=== PATIENT | male | born 1960 | race Caucasian/White ===

== ENCOUNTER 2017-09-05 13:44 | Emergency (ER) | payer OTHER ==
[~2017-09-05 13:44] MED LIST: DIC50 PO; LEVO75TA73 PO; OMEP-218 PO; RANI-324 PO
--- NOTE | 2017-09-05 14:03 | EKG ---
FACILITY: [facility] - [place] PATIENT NAME: CAROLYNN TAMAYO : [id number] MR: [id number] V: [id number] EXAM DATE: ORDERING PHYSICIAN: ROMULO ZARATE TECHNOLOGIST: JUNIOR Test Reason : CP Blood Pressure : / mmHG Vent. Rate : 066 BPM Atrial Rate : 066 BPM P-R Int : 166 ms QRS Dur : 112 ms QT Int : 388 ms P-R-T Axes : 020 -38 023 degrees QTc Int : 406 ms Normal sinus rhythm Left axis deviation Moderate voltage criteria for LVH, may be normal variant Abnormal ECG No previous ECGs available Confirmed by GUSTAVO FRANCO ([id number]) on 09/05/2017 2:24:11 PM Referred By: ELLIOT Confirmed By:GUSTAVO FRANCO
[2017-09-05] MEDS ORDERED: NS(*) 0.9% 1000 ML BAG 1,000 ML IV ONE (14:09)
[2017-09-05] MEDS ORDERED: LIDOCAINE 2% VISC SLN 15ML UDC PO ONE (14:10)
[2017-09-05] MEDS ORDERED: ATRO/SCOPOL/HYOSCY/PB 5 ML ELX PO ONE (14:10)
[2017-09-05] MEDS ORDERED: MAG HYD/AL HYD/SIMETH 30ML UDC PO ONE (14:10)
[2017-09-05] MEDS ORDERED: ASPIRIN 81 MG CHEW PO ONE (14:10)
[2017-09-05 14:22] LABS: PLATELET COUNT, AUTOMATED 254 K/uL (150-450)
--- NOTE | 2017-09-05 14:50 | RADIOLOGY IMAGING REPORT ---
FACILITY: PATIENT NAME: Jaret Richards : 1960 MR: [id number] V: [id number] EXAM DATE: ORDERING PHYSICIAN: YOBANI SPANN TECHNOLOGIST: Location: [facility] [place] Patient: Jaret Richards : 1960 Visit/Account:[id number] Date of Sevice: 09/05/2017 EXAMINATION: Chest 2 Views HISTORY: Chest pain. COMPARISON: None. FINDINGS: The lungs are clear. No focal consolidation or pleural fluid. No pneumothorax. Normal cardiomedias tinal silhouette, with normal heart size and pulmonary vascularity. Visualized osseous structures ar e unremarkable. IMPRESSION: Negative chest. Report Dictated By: Bharath Pang MD at 09/05/2017 2:40 PM Report E-Signed By: Bharath Pang MD at 09/05/2017 2:45 PM WSN:[id number]
[2017-09-05] MEDS ORDERED: OMEP40CA48 PO (15:10)
--- NOTE | 2017-09-05 15:17 | ER Report ---
History and Physical Time Seen By MD: 14:00 Hx. of Stated Complaint: pt reports esophageal pain, on and off for 1.5 years; can't see a doctor until the end of september; pt reports l arm and neck pain "when it flares up" HPI/ROS CHIEF COMPLAINT: Esophageal pain HISTORY OF PRESENT ILLNESS: 56-year-old male patient presents to emergency room with complaint of esophageal pain. Patient states that he has been having this for the past 18 months. He states that he started having pain after he had an endoscopy which showed inflammation of the esophagus. He states he's been taking 20 mg of omeprazole daily to help. He states that there are days that seems to help, however there other days where the pain is significant. He denies any nausea, vomiting or diarrhea. He states the pain is coming worse and is concerned there may be some other cause. He denies having any cardiac history. Patient states the pain is worse typically in the morning. REVIEW OF SYSTEMS: Respiratory: No cough, no dyspnea. Cardiovascular: As noted above Gastrointestinal: No vomiting, no abdominal pain. Musculoskeletal: No back pain. Allergies: Coded Allergies: No Known Drug Allergies (Verified , 09/05/17) Home Meds Active Scripts Omeprazole (OMEPRAZOLE) 40 Mg Capsule., 40 MG PO QDAY, #30 CAP Prov:YOBANI SPANN [employer]OUT [employer] 09/05/17 Reported Medications Omeprazole Magnesium (PRILOSEC OTC) 20 Mg Tablet.dr, 1 TAB PO PRN, TAB 03/26/16 Levothyroxine Sodium (LEVOTHYROXINE SODIUM) 75 Mcg Tablet, 1 TAB PO QDAY, TAB 02/27/16 Past Medical/Surgical History A shunt has a past medical history of reflux, hypothyroidism, alcohol use. Patient has surgical history of endoscopy, colonoscopy, left knee surgery, bilateral ankle surgery. Reviewed Nurses Notes: Yes Hx Smoking: No Smoking Status: Never Smoker Hx Substance Use Disorder: No Hx Alcohol Use: Yes Constitutional Vital Sign - Last 24 Hours 09/05/17 09/05/17 09/05/17 09/05/17 13:49 13:49 13:59 14:14 Temp 97.9 Pulse 81 91 76 Resp 16 B/P (MAP) 138/98 138/98 (111) Pulse Ox 92 92 93 O2 Delivery Room Air 09/05/17 09/05/17 09/05/17 09/05/17 14:29 14:41 14:44 14:59 Pulse 77 73 66 B/P (MAP) 125/98 (107) Pulse Ox 93 92 95 09/05/17 09/05/17 09/05/17 15:00 15:14 15:20 Pulse 71 B/P (MAP) 135/93 (107) 119/92 (101) Pulse Ox 97 Physical Exam General Appearance: The patient is alert, has no immediate need for airway protection and no current signs of toxicity. Respiratory: Chest is non tender, lungs are clear to auscultation. Cardiac: regular rate and rhythm Gastrointestinal: Abdomen is soft and non tender, no masses, bowel sounds normal. Musculoskeletal: Neck: Neck is supple and non tender. Extremities have full range of motion and are non tender. Skin: No rashes or lesions. DIFFERENTIAL DIAGNOSIS: After history and physical exam differential diagnosis was considered for chest pain including but not limited to myocardial ischemia, pericarditis pulmonary embolus, chest wall pain, pleural inflammation and pulmonary infectious causes. Included in the differential is esophagitis. Medical Decision Making Data Points Result Diagram: 09/05/17 1410 09/05/17 1410 Laboratory Hematology Test 09/05/17 14:10 Red Blood Count 5.57 M/uL (4.00-5.60) Mean Corpuscular Volume 86.6 fL (80.0-96.0) Mean Corpuscular Hemoglobin 30.2 pg (26.0-33.0) Mean Corpuscular Hemoglobin Concent 34.9 g/dL (32.0-36.0) Red Cell Distribution Width 12.6 % (11.5-14.5) Mean Platelet Volume 7.8 fL (7.2-11.1) Neutrophils (%) (Auto) 59.4 % (39.4-72.5) Lymphocytes (%) (Auto) 29.6 % (17.6-49.6) Monocytes (%) (Auto) 8.8 % (4.1-12.4) Eosinophils (%) (Auto) 1.2 % (0.4-6.7) Basophils (%) (Auto) 1.0 % (0.3-1.4) Nucleated RBC Relative Count (auto) 0.0 /100WBC Neutrophils # (Auto) 5.3 K/uL (2.0-7.4) Lymphocytes # (Auto) 2.6 K/uL (1.3-3.6) Monocytes # (Auto) 0.8 K/uL (0.3-1.0) Eosinophils # (Auto) 0.1 K/uL (0.0-0.5) Basophils # (Auto) 0.1 K/uL (0.0-0.1) Nucleated RBC Absolute Count (auto) 0.00 K/uL Peripheral Blood Smear No Y/N Sodium Level 140 mmol/L (137-145) Potassium Level 4.0 mmol/L (3.5-5.0) Chloride Level 103 mmol/L (98-107) Carbon Dioxide Level 22 mmol/L (22-30) Blood Urea Nitrogen 14 mg/dl (9-21) Creatinine 0.90 mg/dl (0.66-1.25) Glomerular Filtration Rate Calc > 60.0 Random Glucose 98 mg/dl (75-110) Calcium Level 9.7 mg/dl (8.4-10.2) Total Bilirubin 1.2 mg/dl (0.2-1.3) Aspartate Amino Transf (AST/SGOT) 38 U/L (0-35) Alanine Aminotransferase (ALT/SGPT) 35 U/L (0-56) Alkaline Phosphatase 80 U/L (0-126) Troponin I < 0.012 ng/ml Total Protein 8.1 gm/dl (6.3-8.2) Albumin 4.6 g/dl (3.5-5.0) Amylase Level 64 U/L (0-110) Lipase 60 U/L (23-300) Chemistry Test 09/05/17 14:10 White Blood Count 8.8 k/uL (4.5-11.0) Red Blood Count 5.57 M/uL (4.00-5.60) Hemoglobin 16.8 g/dL (14.0-18.0) Hematocrit 48.3 % (42.0-52.0) Mean Corpuscular Volume 86.6 fL (80.0-96.0) Mean Corpuscular Hemoglobin 30.2 pg (26.0-33.0) Mean Corpuscular Hemoglobin Concent 34.9 g/dL (32.0-36.0) Red Cell Distribution Width 12.6 % (11.5-14.5) Platelet Count 254 K/uL (150-450) Mean Platelet Volume 7.8 fL (7.2-11.1) Neutrophils (%) (Auto) 59.4 % (39.4-72.5) Lymphocytes (%) (Auto) 29.6 % (17.6-49.6) Monocytes (%) (Auto) 8.8 % (4.1-12.4) Eosinophils (%) (Auto) 1.2 % (0.4-6.7) Basophils (%) (Auto) 1.0 % (0.3-1.4) Nucleated RBC Relative Count (auto) 0.0 /100WBC Neutrophils # (Auto) 5.3 K/uL (2.0-7.4) Lymphocytes # (Auto) 2.6 K/uL (1.3-3.6) Monocytes # (Auto) 0.8 K/uL (0.3-1.0) Eosinophils # (Auto) 0.1 K/uL (0.0-0.5) Basophils # (Auto) 0.1 K/uL (0.0-0.1) Nucleated RBC Absolute Count (auto) 0.00 K/uL Peripheral Blood Smear No Y/N Glomerular Filtration Rate Calc > 60.0 Calcium Level 9.7 mg/dl (8.4-10.2) Total Bilirubin 1.2 mg/dl (0.2-1.3) Aspartate Amino Transf (AST/SGOT) 38 U/L (0-35) Alanine Aminotransferase (ALT/SGPT) 35 U/L (0-56) Alkaline Phosphatase 80 U/L (0-126) Troponin I < 0.012 ng/ml Total Protein 8.1 gm/dl (6.3-8.2) Albumin 4.6 g/dl (3.5-5.0) Amylase Level 64 U/L (0-110) Lipase 60 U/L (23-300) EKG/Imaging EKG Interpretation 12 lead EKG: Rhythm: normal sinus rhythm with ventricular rate of 66 bpm Willis: normal QRS: normal ST segments: normal Imaging EXAMINATION: Chest 2 Views HISTORY: Chest pain. COMPARISON: None. FINDINGS: The lungs are clear. No focal consolidation or pleural fluid. No pneumothorax. Normal cardiomediastinal silhouette, with normal heart size and pulmonary vascularity. Visualized osseous structures are unremarkable. IMPRESSION: Negative chest. Report Dictated By: Bharath Pang MD at 09/05/2017 2:40 PM Report E-Signed By: Bharath Pang MD at 09/05/2017 2:45 PM ED Course/Re-evaluation ED Course Patient was admitted and examined, history and physical were obtained. Differential diagnoses were considered. On examination patient has no obvious signs of pain. A CBC, CMP, troponin, EKG, chest x-ray were done. Lab results were unremarkable. Elevated one troponin as the patient has been having pain for the past 4 days. I believe that has ruled out any acute TX. I believe that the pain is likely caused by esophagitis. With the patient taking only 20 mg of omeprazole I would like to go ahead and increase him to 40 mg daily. We will also give him a GI cocktail that he can take every 4 hours as needed for pain. Patient is to follow-up with lease picker as he scheduled on the . Patient was given GI cocktail here in the emergency room which seemed to help considerably with his pain. We will use that on an outpatient while the omeprazole taking effect. I discussed this with the patient is and they verbalized understanding and agreement with plan. Decision to Disposition Date: Sep 05, 2017 Decision to Disposition Time: 15:17 Depart Departure Latest Vital Signs Vital Signs Date Time Temp Pulse Resp B/P (MAP) Pulse Ox O2 Delivery O2 Flow Rate FiO2 09/05/17 15:20 119/92 (101) 09/05/17 15:14 71 97 09/05/17 13:49 97.9 16 Room Air Impression: Primary Impression: GERD (gastroesophageal reflux disease) Condition: Improved Disposition: HOME OR SELF-CARE Referrals: EJ HANKS (PCP) New Scripts Omeprazole (OMEPRAZOLE) 40 Mg Capsule. 40 MG PO QDAY, #30 CAP Prov: YOBANI SPANN 09/05/17 Patient Instructions: Gastroesophageal Reflux Disease (ED) Additional Instructions: Avoid alcohol and carbonated drinks 4 hours prior to bed time. Continue with normal diet. Follow up with Gastroenterology on 09/19 as previously scheduled. Follow up with your primary care provider if you are continuing to have pain. It is my hope that you will have improved comfort in the next 4-5 days and then will not need the GI cocktail. Problem Qualifiers Primary Impression: GERD (gastroesophageal reflux disease) Esophagitis presence: with esophagitis Qualified Codes: K21.0 - Gastro- esophageal reflux disease with esophagitis YOBANI SPANN Sep 05, 2017 15:17
[2017-09-05 15:20] VITALS: BP 119/92
== END 2017-09-05 15:22 | disposition home or self-care (01) ==
LOC: ER 13:54
DX: K21.0 Gastro-esophageal reflux disease with esophagitis (principal)
CPT/HCPCS: 71046; 82040; 82150; 82247; 82310; 82374; 82435; 82565; 82947; 83690; 84075; 84132; 84155; 84295; 84450; 84460; 84484; 84520; 85025; 93005; 99284

== ENCOUNTER → 2017-09-30 | Outpatient (CLI) | payer OTHER ==
[~2017-09-30] MED LIST changes: +DEXL60CA6 PO; +OMEP40CA48 PO; -RANI-324 PO; +RANI-366 PO
--- NOTE | 2017-09-30 11:13 | RADIOLOGY IMAGING REPORT ---
FACILITY: [facility] - [place] PATIENT NAME: Jaret Richards : 1960 MR: [id number] V: [id number] EXAM DATE: ORDERING PHYSICIAN: CRISTINA JACKSON TECHNOLOGIST: Location: [facility] Patient: Jaret Richards : 1960 Visit/Account:[id number] Date of Sevice: 09/30/2017 GALLBLADDER W KINEVAC HISTORY: Right upper quadrant pain after eating COMPARISON: None. FINDINGS: There is no demonstration of gallbladder stones, gallbladder sludge, gallbladder wall thickening or p ericholecystic fluid. The maximum gallbladder volume was 26.7 mL. Following intravenous administrat ion of 3.09 mL of CCK the maximum gallbladder contraction yielded a volume of 16.4. This demonstrate s a gallbladder ejection fraction of 34%. The patient experienced nausea following the injection of CCK six on a scale of 10. The patient also experienced pain four on a scale of 10. IMPRESSION: Gallbladder ejection fraction 34% Report Dictated By: Ana Nieves MD at 09/30/2017 11:05 AM Report E-Signed By: Ana Nieves MD at 09/30/2017 11:09 AM WSN:[email or web address]
== END ==
LOC: US 02:20
PROVIDERS: ATTEND Nurse Practitioner Family
DX: R93.2 Abnormal findings on diagnostic imaging of liver and biliary tract (principal)
CPT/HCPCS: 76705

== ENCOUNTER 2017-10-03 00:34 | Day surgery (SDC) | payer OTHER ==
[~2017-10-03] VITALS: Ht 180.3 cm; Wt 75.7 kg
[2017-10-03] MEDS ORDERED: GLYCOPYRROLATE 0.2MG/ML 1 ML INJ IVP ONE (08:20)
[2017-10-03 12:54] VITALS: BP 130/84
[2017-10-03] MEDS ORDERED: LIDOCAINE/SOD BICARB 8.4% SYR ID ONE (13:10)
[2017-10-03] MEDS ORDERED: NORMOSOL R SOLN(*) 1000 ML BAG 1,000 ML IV PRN (13:10)
[2017-10-03 14:47] VITALS: BP 108/81
[2017-10-03 15:00] VITALS: BP 122/87
[2017-10-03 15:15] VITALS: BP 120/90
[2017-10-03 15:22] VITALS: BP 128/92
[2017-10-03 15:23] VITALS: BP 119/88
== END 2017-10-03 15:50 | disposition home or self-care (01) ==
LOC: OR 00:34
PROVIDERS: ATTEND Internal Medicine Gastroenterology
DX: K44.9 Diaphragmatic hernia without obstruction or gangrene (principal); K20.9 Esophagitis, unspecified; K31.7 Polyp of stomach and duodenum; K29.70 Gastritis, unspecified, without bleeding
CPT/HCPCS: 43239; J3490; 88305; 88313; 88344

== ENCOUNTER → 2018-09-19 | Outpatient (CLI) | payer OTHER ==
--- NOTE | 2018-09-19 12:19 | RADIOLOGY IMAGING REPORT ---
FACILITY: [facility] [place] PATIENT NAME: Jaret Richards : 1960 MR: [id number] V: [id number] EXAM DATE: ORDERING PHYSICIAN: EJ HANKS TECHNOLOGIST: Location: [facility] Patient: Jaret Richards : 1960 Visit/Account:[id number] Date of Sevice: 09/19/2018 EXAMINATION: CT Head without intravenous contrast CT Head with intravenous contrast HISTORY: Persistent headache after head injury 5 weeks ago. TECHNIQUE: Contiguous axial images were obtained from the skull base to the vertex before and after IV contrast. Sagittal and coronal reformatted images are also submitted. One of the following dose optimization techniques was utilized in the performance of this exam: Autom ated exposure control; adjustment of the mA and/or kV according to the patient's size; or use of an i terative reconstruction technique. Specific details can be referenced in the facility's radiology C T exam operational policy. CONTRAST: 75 mL of IV [id number] COMPARISON: None available. FINDINGS: Brain volume: Normal. Ventricles: Negative. Acute ischemic changes: None. Hemorrhage: None. Masses / edema: None. Enhancement: Negative. Peng-white: Negative. White matter: Negative. Vessels: Negative. Extra-axial: Negative. Calvarium / skull base: Negative. Visualized sinuses / orbits: Leftward nasal septal deviation posteriorly. IMPRESSION: No acute intracranial abnormality. Report Dictated By: Juwan Tenorio MD at 09/19/2018 12:06 PM Report E-Signed By: Juwan Tenorio MD at 09/19/2018 12:16 PM WSN:[id number]
== END ==
LOC: CT 10:54
PROVIDERS: ATTEND Nurse Practitioner Family
DX: J34.2 Deviated nasal septum (principal)
CPT/HCPCS: 70470